=== PATIENT | male | born 1955 | race American Indian/Alaskan Native ===

== ENCOUNTER 2016-12-02 17:41 | Emergency (ER) | payer OTHER ==
[2016-12-02 17:52] VITALS: BP 116/81
[2016-12-02 19:00] LABS: Hematocrit 43.8 % (35.5-45.6); Hemoglobin 14.2 gm/dl (11.8-15.2); Mean Corpuscular HGB Conc 32 % (32-34); Mean Corpuscular Hemoglobin 28 pg (28-32); Mean Corpuscular Volume 87 fl (84-94); Platelet Count 263 K/mm3 (140-440); Red Blood Count 5.07 M/mm3 (3.65-5.03); Red Cell Distribution Width 14.6 % (13.2-15.2)
[2016-12-02 19:17] LABS: INR 1.25 (0.87-1.13)
[2016-12-02 19:20] LABS: Anion Gap 19 mmol/L; BUN/Creatinine Ratio 15.55; Blood Urea Nitrogen 14 mg/dL (9-20); Calcium 8.8 mg/dL (8.4-10.2); Carbon Dioxide 23 mmol/L (22-30); Chloride 97.6 mmol/L (98-107); Glucose 156 mg/dL (75-100); Potassium 4.2 mmol/L (3.6-5.0); Sodium 135 mmol/L (137-145)
--- NOTE | 2016-12-03 07:30 | ED Elopement Review ---
ED Pt Elopement review - Results review Lab results: Laboratory Tests 12/02/16 12/02/16 12/02/16 18:36 18:36 18:36 WBC 11.0 RBC 5.07 H Hgb 14.2 Hct 43.8 MCV 87 MCH 28 MCHC 32 RDW 14.6 Plt Count 263 Lymph % (Auto) 24.2 [place] % (Auto) 14.9 H Eos % (Auto) 7.0 H Baso % (Auto) 1.0 Lymph # 2.7 [place] # 1.6 H Eos # 0.8 H Baso # 0.1 Seg Neutrophils % 52.9 Seg Neutrophils # 5.8 PT 15.6 H INR 1.25 H APTT 55.0 H Sodium 135 L Potassium 4.2 Chloride 97.6 L Carbon Dioxide 23 Anion Gap 19 BUN 14 Creatinine 0.9 Estimated GFR > 60 BUN/Creatinine Ratio 15.55 Glucose 156 H Calcium 8.8 Troponin T < 0.010 NT-Pro-B Natriuret Pep 170.3 - Call Back decision Pt Call Back Decision: No action required
--- NOTE | 2016-12-03 10:33 | XRay Report ---
PA and lateral chest: There is a 2.7 cm rounded density projecting over the left midlung seen only on the frontal view which is not present on prior exams. The chest otherwise appears generally clear. There is an ICD present which is not new. The heart is normal in size and there is no vascular congestion. Impression: Suspicion of left pulmonary opacity. Recommendation: CT chest.
== END 2016-12-02 22:40 | disposition left against medical advice (07) ==
LOC: ED 17:41
DX: R06.02 Shortness of breath (principal); R05 Cough; Z53.21 Procedure and treatment not carried out due to patient leaving prior to being seen by health care provider
CPT/HCPCS: 36415; 71020; 80048; 83880; 84484; 85025; 85610; 85730; 93005; 93010

== ENCOUNTER 2017-06-01 07:41 | Inpatient (IN) | payer OTHER ==
[2017-06-01 08:28] LABS: Anion Gap 18 mmol/L; BUN/Creatinine Ratio 12.72; Blood Urea Nitrogen 14 mg/dL (9-20); Calcium 8.7 mg/dL (8.4-10.2); Carbon Dioxide 23 mmol/L (22-30); Chloride 102.8 mmol/L (98-107); Glucose 191 mg/dL (75-100); Potassium 4.6 mmol/L (3.6-5.0); Sodium 139 mmol/L (137-145)
[2017-06-01 08:36] LABS: Basophils % (Auto) 1.1 % (0.0-1.8); Hematocrit 40.6 % (35.5-45.6); Hemoglobin 13.8 gm/dl (11.8-15.2); Mean Corpuscular HGB Conc 34 % (32-34); Mean Corpuscular Hemoglobin 30 pg (28-32); Mean Corpuscular Volume 89 fl (84-94); Platelet Count 244 K/mm3 (140-440); Red Blood Count 4.55 M/mm3 (3.65-5.03); Red Cell Distribution Width 14.1 % (13.2-15.2)
[2017-06-01] MEDS ORDERED: LASIX IV ONE (08:52)
--- NOTE | 2017-06-01 08:56 | Emergency Department Report ---
ED Shortness of Breath HPI - General Chief Complaint: Dyspnea/Respdistress Stated Complaint: SOB Time Seen by Provider: 06/01/17 08:38 Source: patient Mode of arrival: Ambulatory Limitations: No Limitations - History of Present Illness Initial Comments: Mr. Lunsford is a 61 years old -[place] male coming with shortness of breath since been going on for 2-3 days. He has history of congestive heart failure was an ejection fraction 10-15%. He also complained of left-sided chest pain on and off at the defibrillator side. Denied any fever cough nausea or vomiting. MD Complaint: shortness of breath, chest pain -: days(s) (2) Known History Of: congestive heart failure Associated Symptoms: orhopnia - Related Data Previous Rx's Medication Instructions Recorded Last Taken Type Furosemide [Lasix TAB] 20 mg PO QDAY #30 tablet 06/12/16 06/26/16 Rx ISOSORBIDE MONOnitrate [Imdur ER] 30 mg PO QDAY #30 tablet 06/12/16 06/26/16 Rx Lisinopril [Zestril TAB] 2.5 mg PO QDAY #30 tab 06/12/16 06/26/16 Rx Dabigatran [Pradaxa] 150 mg PO BID #30 capsule 06/28/16 Unknown Rx Metoprolol [Lopressor TAB] 50 mg PO BID #60 tablet 06/28/16 Unknown Rx Insulin NPH/Regular [NovoLIN 70/30] 15 unit SUB-Q BIDDIAB 30 Days 08/15/16 Unknown Rx Amiodarone [Cordarone 200 MG TAB] 200 mg PO BID #60 tablet 01/09/17 Unknown Rx AtorvaSTATin [Lipitor] 20 mg PO QHS #30 tablet 01/09/17 Unknown Rx AtorvaSTATin [Lipitor] 20 mg PO QHS #30 tablet 01/09/17 Unknown Rx Dabigatran [Pradaxa] 150 mg PO BID #60 capsule 01/09/17 Unknown Rx Furosemide [Lasix TAB] 20 mg PO QDAY #30 tablet 01/09/17 Unknown Rx ISOSORBIDE MONOnitrate [Imdur ER] 30 mg PO QDAY #30 tablet 01/09/17 Unknown Rx Lisinopril [Zestril TAB] 2.5 mg PO QDAY #30 tablet 01/09/17 Unknown Rx Metoprolol Xl [Metoprolol 50 mg PO QDAY #30 tablet 01/09/17 Unknown Rx SUCCINATE ER TAB] Allergies Allergy/AdvReac Type Severity Reaction Status Date / Time iodine Allergy Hives Verified 12/02/16 17:53 shrimp Allergy Swelling Verified 12/02/16 17:53 ED Review of Systems ROS: Stated complaint: SOB Other details as noted in HPI Comment: All other systems reviewed and negative Constitutional: denies: chills, fever Respiratory: orthopnea, shortness of breath, SOB with exertion, SOB at rest. denies: cough, stridor, wheezing Cardiovascular: chest pain, dyspnea on exertion, orthopnea. denies: palpitations, edema Gastrointestinal: denies: abdominal pain, nausea, vomiting Musculoskeletal: denies: back pain Neurological: denies: headache, weakness ED Past Medical Hx - Past Medical History Previous Medical History?: Yes Hx Hypertension: Yes Hx Heart Attack/AMI: Yes Hx Congestive Heart Failure: Yes Hx Diabetes: Yes Hx Asthma: No Hx COPD: Yes Hx HIV: No - Surgical History Past Surgical History?: Yes Hx Pacemaker: Yes () Additional Surgical History: cardiac catherization 03/12/16 - Social History Smoking Status: Former Smoker Substance Use Type: Alcohol, Cocaine, Prescribed - Medications Home Medications: Home Medications Medication Instructions Recorded Confirmed Last Taken Type Furosemide [Lasix TAB] 20 mg PO QDAY #30 tablet 06/12/16 01/07/17 06/26/16 Rx ISOSORBIDE MONOnitrate [Imdur ER] 30 mg PO QDAY #30 tablet 06/12/16 01/07/17 Rx Lisinopril [Zestril TAB] 2.5 mg PO QDAY #30 tab 06/12/16 01/07/17 06/26/16 Rx Dabigatran [Pradaxa] 150 mg PO BID #30 capsule 06/28/16 01/07/17 Unknown Rx Metoprolol [Lopressor TAB] 50 mg PO BID #60 tablet 06/28/16 01/07/17 Unknown Rx Insulin NPH/Regular [NovoLIN 70/30] 15 unit SUB-Q BIDDIAB 30 Days 08/15/1601/07 Unknown Rx Amiodarone [Cordarone 200 MG TAB] 200 mg PO BID #60 tablet 01/09/17 Unknown Rx AtorvaSTATin [Lipitor] 20 mg PO QHS #30 tablet 01/09/17 Unknown Rx AtorvaSTATin [Lipitor] 20 mg PO QHS #30 tablet 01/09/17 Unknown Rx Dabigatran [Pradaxa] 150 mg PO BID #60 capsule 01/09/17 Unknown Rx Furosemide [Lasix TAB] 20 mg PO QDAY #30 tablet 01/09/17 Unknown Rx ISOSORBIDE MONOnitrate [Imdur ER] 30 mg PO QDAY #30 tablet 01/09/17 Unknown Rx Lisinopril [Zestril TAB] 2.5 mg PO QDAY #30 tablet 01/09/17 Unknown Rx Metoprolol Xl [Metoprolol 50 mg PO QDAY #30 tablet 01/09/17 Unknown Rx SUCCINATE ER TAB] ED Physical Exam - General Limitations: No Limitations General appearance: alert, in no apparent distress - Neck Neck exam: Present: normal inspection, full ROM. Absent: tenderness, meningismus, lymphadenopathy, thyromegaly - Respiratory Respiratory exam: Present: rales, decreased breath sounds. Absent: wheezes, rhonchi, stridor - Cardiovascular Cardiovascular Exam: Present: regular rate, normal rhythm, normal heart sounds - GI/Abdominal GI/Abdominal exam: Present: soft. Absent: distended, tenderness, guarding, rebound, rigid, normal bowel sounds, hyperactive bowel sounds, hypoactive bowel sounds, organomegaly, mass, bruit, pulsatile mass - Extremities Exam Extremities exam: Absent: pedal edema - Back Exam Back exam: Present: normal inspection. Absent: CVA tenderness (R), CVA tenderness (L) - Neurological Exam Neurological exam: Present: alert, oriented X3, CN II-XII intact - Skin Skin exam: Present: warm, normal color ED Course Vital Signs 06/01/17 06/01/17 06/01/17 07:44 08:03 08:17 Temperature 98 F Pulse Rate 65 Respiratory 18 18 Rate Blood Pressure 142/89 Blood Pressure [Left] O2 Sat by Pulse 95 97 Oximetry 06/01/17 06/01/17 06/01/17 08:30 09:00 09:23 Temperature Pulse Rate 63 61 65 Respiratory 19 16 20 Rate Blood Pressure 123/84 129/77 Blood Pressure 127/75 [Left] O2 Sat by Pulse 92 96 95 Oximetry 06/01/17 06/01/17 06/01/17 09:30 10:00 10:30 Temperature Pulse Rate 65 59 L 60 Respiratory 13 17 14 Rate Blood Pressure 129/77 125/84 125/84 Blood Pressure [Left] O2 Sat by Pulse 98 97 97 Oximetry 06/01/17 06/01/17 06/01/17 11:00 11:30 12:00 Temperature Pulse Rate 59 L 58 L 57 L Respiratory 14 12 15 Rate Blood Pressure 109/61 109/61 111/68 Blood Pressure [Left] O2 Sat by Pulse 95 97 95 Oximetry 06/01/17 06/01/17 06/01/17 12:30 12:52 13:00 Temperature Pulse Rate 62 65 67 Respiratory 14 18 12 Rate Blood Pressure 111/68 111/82 Blood Pressure 111/68 [Left] O2 Sat by Pulse 98 97 95 Oximetry 06/01/17 13:30 Temperature Pulse Rate 59 L Respiratory 13 Rate Blood Pressure 111/82 Blood Pressure [Left] O2 Sat by Pulse 97 Oximetry - Reevaluation(s) Reevaluation #1: 06/01/17 PATIENT STATED THAT HE FEEL BETTER. DISCUSS WITH DR SEPULVEDA FOR ADMISSION. ED Medical Decision Making - Lab Data Result diagrams: 06/01/17 07:58 06/01/17 07:55 Critical care attestation.: If time is entered above; I have spent that time in minutes in the direct care of this critically ill patient, excluding procedure time. ED Disposition Clinical Impression: CHF exacerbation Chest pain Qualifiers: Chest pain type: unspecified Qualified Code(s): R07.9 - Chest pain, unspecified Disposition: DC-09 OP ADMIT IP TO THIS HOSP Is pt being admited?: Yes Condition: Stable
--- NOTE | 2017-06-01 09:08 | XRay Report ---
FINAL REPORT EXAM: XR CHEST ROUTINE 2V HISTORY: sob with hx of pacemaker TECHNIQUE: Chest, two views PRIORS: 03/09/2016 FINDINGS: Pacemaker projects on the left.. The heart size is normal. Mediastinal contours are normal. Pulmonary vasculature is not congested. The lungs are clear. There are no pleural effusion seen. There is no evidence of pneumothorax. IMPRESSION: There is no acute abnormality identified.
--- NOTE | 2017-06-01 10:18 | Consultation ---
History of Present Illness Consult date: 06/01/17 Requesting physician: RAGHU WHALEN Consult reason: congestive heart failure History of present illness: This is a 61-year-old -[place] male with known history of nonischemic cardiomyopathy with AICD proximal atrial fibrillation hypertension hyperlipidemia who was last seen by Dr. Elizalde in March was exercising and was in [place] heart classification 1. Patient has stopped exercises. Having dietary indiscretion with more fluid and salt intake. Last few days of increasing shortness of breath last night and was unable to sleep at night had 4 pillow orthopnea and PND patient came to emergency room for further evaluation and was given 40 mg of Lasix shortness breath is improved. Patient denies any AICD shock. Patient denies any chest pain. Patient denies any nausea or vomiting fever or chills patient states compliance with medication Past History Past Medical History: atrial fib (proximal), heart failure (systolic heart failure 10-15%), hypertension, hyperlipidemia Past Surgical History: Other (AICD) Social history: smoking (occasional smoker). denies: alcohol abuse, prescription drug abuse Medications and Allergies Allergies Allergy/AdvReac Type Severity Reaction Status Date / Time iodine Allergy Hives Verified 12/02/16 17:53 shrimp Allergy Swelling Verified 12/02/16 17:53 Home Medications Medication Instructions Recorded Confirmed Last Taken Type Furosemide [Lasix TAB] 20 mg PO QDAY #30 tablet 06/12/16 01/07/17 06/26/16 Rx ISOSORBIDE MONOnitrate [Imdur ER] 30 mg PO QDAY #30 tablet 06/12/16 01/07/17 Rx Lisinopril [Zestril TAB] 2.5 mg PO QDAY #30 tab 06/12/16 01/07/17 06/26/16 Rx Dabigatran [Pradaxa] 150 mg PO BID #30 capsule 06/28/16 01/07/17 Unknown Rx Metoprolol [Lopressor TAB] 50 mg PO BID #60 tablet 06/28/16 01/07/17 Unknown Rx Insulin NPH/Regular [NovoLIN 70/30] 15 unit SUB-Q BIDDIAB 30 Days 08/15/1601/07 Unknown Rx Amiodarone [Cordarone 200 MG TAB] 200 mg PO BID #60 tablet 01/09/17 Unknown Rx AtorvaSTATin [Lipitor] 20 mg PO QHS #30 tablet 01/09/17 Unknown Rx AtorvaSTATin [Lipitor] 20 mg PO QHS #30 tablet 01/09/17 Unknown Rx Dabigatran [Pradaxa] 150 mg PO BID #60 capsule 01/09/17 Unknown Rx Furosemide [Lasix TAB] 20 mg PO QDAY #30 tablet 01/09/17 Unknown Rx ISOSORBIDE MONOnitrate [Imdur ER] 30 mg PO QDAY #30 tablet 01/09/17 Unknown Rx Lisinopril [Zestril TAB] 2.5 mg PO QDAY #30 tablet 01/09/17 Unknown Rx Metoprolol Xl [Metoprolol 50 mg PO QDAY #30 tablet 01/09/17 Unknown Rx SUCCINATE ER TAB] Review of Systems All systems: negative (as per the HPI) Physical Examination Vital Signs Temp Pulse Resp BP Pulse Ox 98 F 65 18 142/89 95 06/01/17 07:44 06/01/17 07:44 06/01/17 07:44 06/01/17 07:44 06/01/17 07:44 General appearance: no acute distress, well-nourished HEENT: Positive: PERRL, Mucus Membranes Moist Neck: Positive: neck supple, trachea midline Cardiac: Positive: Reg Rate and Rhythm, S1/S2. Negative: Audible Murmur Lungs: Positive: Decreased Breath Sounds Neuro: Positive: Grossly Intact Abdomen: Positive: Soft, Active Bowel Sounds. Negative: Tender, Distended Male genitourinary: Positive: normal Skin: Positive: Clear Incision: Cardiac Cath Site Musculoskeletal: No Pain, Normal Range of Motion Extremities: Present: normal. Absent: edema Results 06/01/17 07:58 06/01/17 07:55 CBC 06/01/17 Range/Units 07:58 WBC 9.0 (4.5-11.0) K/mm3 RBC 4.55 (3.65-5.03) M/mm3 Hgb 13.8 (11.8-15.2) gm/dl Hct 40.6 (35.5-45.6) % Plt Count 244 (140-440) K/mm3 Lymph # 2.4 (1.2-5.4) K/mm3 [place] # 1.4 H (0.0-0.8) K/mm3 Eos # 0.4 (0.0-0.4) K/mm3 Baso # 0.1 (0.0-0.1) K/mm3 Comprehensive Metabolic Panel 06/01/17 Range/Units 07:55 Sodium 139 (137-145) mmol/L Potassium 4.6 (3.6-5.0) mmol/L Chloride 102.8 (98-107) mmol/L Carbon Dioxide 23 (22-30) mmol/L BUN 14 (9-20) mg/dL Creatinine 1.1 (0.8-1.5) mg/dL Glucose 191 H (75-100) mg/dL Calcium 8.7 (8.4-10.2) mg/dL - Imaging and Cardiology Echo: report reviewed (05/2016 EF 10-15%) Cardiac cath: report reviewed (08/2016 normal coronary severe LV dysfunction) EKG interpretations - Telemetry EKG Rhythm: Sinus Rhythm (normal sinus rhythm left bundle branch block) Assessment and Plan Acute respiratory failure Acute on chronic systolic heart failure Nonischemic cardiomyopathy Abnormal EKG left bundle branch block Proximal A fibrillation Hypertension Hyperlipidemia Smoker Recommend continuing IV diarrhetic's continue home medications consultation about her dietary discretion and smoking sensation patient has dual-chamber AICD unable place third lead for BIV ventricle as per the patient.
--- NOTE | 2017-06-01 11:52 | History and Physical Report ---
History of Present Illness Chief complaint: I got fluid on my lungs, I can feel it History of present illness: 61 YO Male with CHF Systolic(EF 10%), Paroxysmal Atrial Fib, HTN, HLD, NH, DM, COPD presents to ED for evaluation. Pt states that he has experienced shortness of breath for the past 3 days with worsening symptoms over the past 1 day. Pt acknowledges 4 pillow Orthopnea/PND, dietary noncompliance. Pt denies ICD discharge, fever, chills, CP, Palpitations, NVD, Syncope, prolonged immobility/ travel, individual/family history of DVT/PE, Trauma, unilateral leg swelling, calf pain, hemoptysis, syncope, BRBPR, unintentional weight loss, night sweats, bone pain, skin rashes, or recent ill contacts, Past History Past Medical History: atrial fib (proximal), heart failure (systolic heart failure 10-15%), hypertension, hyperlipidemia Past Surgical History: Other (AICD) Social history: single, smoking (occasional smoker). denies: alcohol abuse, prescription drug abuse Family history: hypertension Medications and Allergies Allergies Allergy/AdvReac Type Severity Reaction Status Date / Time iodine Allergy Hives Verified 12/02/16 17:53 shrimp Allergy Swelling Verified 12/02/16 17:53 Home Medications Medication Instructions Recorded Confirmed Last Taken Type Furosemide [Lasix TAB] 20 mg PO QDAY #30 tablet 06/12/16 01/07/17 06/26/16 Rx ISOSORBIDE MONOnitrate [Imdur ER] 30 mg PO QDAY #30 tablet 06/12/16 01/07/17 Rx Lisinopril [Zestril TAB] 2.5 mg PO QDAY #30 tab 06/12/16 01/07/17 06/26/16 Rx Dabigatran [Pradaxa] 150 mg PO BID #30 capsule 06/28/16 01/07/17 Unknown Rx Metoprolol [Lopressor TAB] 50 mg PO BID #60 tablet 06/28/16 01/07/17 Unknown Rx Insulin NPH/Regular [NovoLIN 70/30] 15 unit SUB-Q BIDDIAB 30 Days 08/15/1601/07 Unknown Rx Amiodarone [Cordarone 200 MG TAB] 200 mg PO BID #60 tablet 01/09/17 Unknown Rx AtorvaSTATin [Lipitor] 20 mg PO QHS #30 tablet 01/09/17 Unknown Rx AtorvaSTATin [Lipitor] 20 mg PO QHS #30 tablet 01/09/17 Unknown Rx Dabigatran [Pradaxa] 150 mg PO BID #60 capsule 01/09/17 Unknown Rx Furosemide [Lasix TAB] 20 mg PO QDAY #30 tablet 01/09/17 Unknown Rx ISOSORBIDE MONOnitrate [Imdur ER] 30 mg PO QDAY #30 tablet 01/09/17 Unknown Rx Lisinopril [Zestril TAB] 2.5 mg PO QDAY #30 tablet 01/09/17 Unknown Rx Metoprolol Xl [Metoprolol 50 mg PO QDAY #30 tablet 01/09/17 Unknown Rx SUCCINATE ER TAB] Review of Systems All systems: negative Constitutional: weight gain, no fever, no chills Ears, nose, mouth and throat: no ear pain Cardiovascular: orthopnea, edema, dyspnea on exertion, paroxysmal nocturnal dyspnea Respiratory: no cough with sputum Gastrointestinal: no abdominal pain Genitourinary Male: no hematuria Musculoskeletal: no neck pain Integumentary: no rash Neurological: no head injury, no weakness Psychiatric: no anxiety, no hypersomnia Endocrine: no cold intolerance, no heat intolerance Hematologic/Lymphatic: no easy bruising Allergic/Immunologic: no urticaria Exam - Constitutional Vitals: Temp Pulse Resp BP Pulse Ox 98 F 65 20 127/75 95 06/01/17 07:44 06/01/17 09:23 06/01/17 09:23 06/01/17 09:23 06/01/17 09:23 General appearance: Present: mild distress - EENT Eyes: Present: PERRL ENT: hearing intact, clear oral mucosa - Neck Neck: Present: supple, normal ROM - Respiratory Respiratory effort: normal Respiratory: bilateral: CTA - Cardiovascular Heart Sounds: Present: S1 & S2. Absent: rub, click - Extremities Extremities: pulses symmetrical, No edema Extremity abnormal: edema Peripheral Pulses: within normal limits - Abdominal General gastrointestinal: Present: soft, non-tender, non-distended, normal bowel sounds Male genitourinary: Present: normal - Integumentary Integumentary: Present: clear, warm, dry - Musculoskeletal Musculoskeletal: gait normal, strength equal bilaterally - Psychiatric Psychiatric: appropriate mood/affect, intact judgment & insight - Neurologic Neurologic: CNII-XII intact, moves all extremities Results - Labs CBC & Chem 7: 06/01/17 07:58 06/01/17 07:55 Labs: Abnormal lab results 06/01/17 06/01/17 Range/Units 07:55 07:58 [place] % (Auto) 15.5 H (0.0-7.3) % [place] # 1.4 H (0.0-0.8) K/mm3 Glucose 191 H (75-100) mg/dL Assessment and Plan - Patient Problems (1) Acute respiratory failure Current Visit: Yes Status: Acute Qualifiers: Respiratory failure complication: R Plan to address problem: Supplemental oxygen, nebs, aspiration precautions, NIPPV as clinically indicated , diuretic therapy (2) Atrial fibrillation Current Visit: Yes Status: Acute Qualifiers: Atrial fibrillation type: paroxysmal Qualified Code(s): I48.0 - Paroxysmal atrial fibrillation Plan to address problem: rate currently controlled, NSR at time of exam, telemetry monitoring (3) HLD (hyperlipidemia) Current Visit: Yes Status: Acute Qualifiers: Hyperlipidemia type: H Plan to address problem: sttin theapy, lipid panel (4) Acute on chronic systolic (congestive) heart failure Current Visit: No Status: Acute Plan to address problem: Cardiology consulted, afterload reduction, fluid restriction, diuresis, daily weight, resume home medication (5) Hypertension Current Visit: No Status: Chronic Qualifiers: Hypertension type: essential hypertension Qualified Code(s): I10 - Essential (primary) hypertension Plan to address problem: monitor bp q shift, resume home medication (6) DVT prophylaxis Current Visit: No Status: Acute
[2017-06-01] MEDS ORDERED: TYLENOL PO PRN (12:00)
[2017-06-01] MEDS ORDERED: PROVENTIL IH PRN (12:00)
[2017-06-01] MEDS ORDERED: MILK OF MAGNESIA PO PRN (17:35)
[2017-06-01] MEDS: COLACE PO SCH (22:06)
[2017-06-02] MEDS: NOVOLOG SUB-Q SCH ×3 (01:03→13:03)
--- NOTE | 2017-06-02 05:35 | Admit Criteria Form ---
Admission Criteria Documentation: HEART FAILURE: COMMON COMPLICATIONS Clinical Indications for Inpatient Care ([place]/check or initial the applicable condition/criteria): Ongoing inpatient care may be indicated for heart failure with 1 or more of the following (1)(2)(3)(4)(5)(6)(7)(8): [ ]I. New-onset heart failure [ ]II. Acute cardiac ischemia causing or associated with failure [ ]III. Ongoing need for care for primary condition requiring frequent therapy adjustments because of changes in cardiac function (eg, drug dosage changes for drugs that are renally metabolized) [X]IV. Complications of heart failure, including 1 or more of the following: [ ]a) Hemodynamic instability [ ]b) Pericardial effusion [ ]c) Symptomatic pleural effusion(16) [ ]d) Hypoxemia [ ]e) Tachypnea [X]f) Dyspnea [ ]g) Syncope [ ]h) Altered mental status [ ]i) Acute renal insufficiency that is severe (reduction of more than 50% in estimated glomerular filtration rate from baseline) or progressive (reduction of more than 25% in estimated glomerular filtration rate from baseline, with creatinine continuing to rise) [ ]j) Debilitating anasarca (eg tissue breakdown with infection, inability to void due to edema)(E) (17) [ ]k) Clinically significant metabolic abnormalities due to heart failure (e.g., new-onset metabolic acidosis) Extended stay may be needed until ALL of the following are present(1)(3)(18)(41) (55): [ ]a) Hemodynamic stability [ ]b) Stable and effective diuretic regimen established (or patient on stable dialysis regimen if in chronic renal failure) [ ]c) Volume status acceptable on oral medication [ ]d) Breathing comfortably at rest [ ]e) Saturation of arterial oxygen greater than 90% or at acceptable baseline [ ]f) Pulmonary edema absent or improved [ ]g) Peripheral or sacral edema absent or improved [ ]h) Renal function stable and manageable at a lower level of care [ ]i) Complications (e.g., pleural effusion) resolved or manageable at a lower level of care [ ]j) Patient or caregiver has received written discharge instructions or educational material addressing activity level, diet, discharge medications, follow-up appointment, weight monitoring, and what to do if symptoms worsen. (56)(57)(58) The original [facility] [employer] content created by Carol Friedman has been revised. The portions of the content which have been revised are identified through the use of italic text or in bold, and Carol Friedman has neither reviewed nor approved the modified material.All other unmodified content is copyright [facility]. Please see references footnoted in the original [facility] edition 2017 Admission Criteria Met: Yes
[2017-06-02 09:22] VITALS: BP 138/91
[2017-06-02] MEDS: COLACE PO SCH (09:56)
--- NOTE | 2017-06-02 11:33 | Progress Note ---
Assessment and Plan Currently stable cardiac status. Pt may discharge home from cardiology standpoint. Will see PRN. On discharge, recommend continuation of PO lasix, 40mg daily. Follow up in our [place] office with Dr. Elizalde on 06/11/2017 @ 9:15AM. The patient has been seen in conjunction with Dr. Dubose who agrees with the assessment and plan of care. - Patient Problems (1) Acute on chronic systolic heart failure Current Visit: Yes Status: Chronic (2) Paroxysmal atrial flutter Current Visit: Yes Status: Chronic (3) Nonischemic cardiomyopathy Current Visit: Yes Status: Chronic (4) Automatic implantable cardioverter-defibrillator in situ Current Visit: Yes Status: Chronic (5) Hypertension Current Visit: Yes Status: Chronic Qualifiers: Hypertension type: essential hypertension Qualified Code(s): I10 - Essential (primary) hypertension (6) HLD (hyperlipidemia) Current Visit: Yes Status: Chronic Qualifiers: Hyperlipidemia type: H (7) Tobacco use Current Visit: Yes Status: Chronic Subjective Date of service: 06/02/17 Principal diagnosis: HF Interval history: Pt resting comfortably in bed, denies any cardiac complaints. States he is ready to go home. VSS. Objective Last Vital Signs Temp 97.5 F L 06/02/17 09:21 Pulse 61 06/02/17 09:21 Resp 18 06/02/17 09:21 BP 138/91 06/02/17 09:21 Pulse Ox 97 06/02/17 09:21 - Physical Examination General: No Apparent Distress HEENT: Positive: PERRL, Mucus Membranes Moist Neck: Positive: neck supple, trachea midline Cardiac: Positive: Reg Rate and Rhythm, S1/S2 Lungs: Positive: clear to auscultation Neuro: Positive: Grossly Intact Abdomen: Positive: Soft, Active Bowel Sounds. Negative: Tender, Distended Skin: Positive: Clear Incision: Cardiac Cath Site Musculoskeletal: No Pain, Normal Range of Motion Extremities: Present: normal. Absent: edema - Imaging and Cardiology Echo: report reviewed (05/2016 EF 10-15%) Cardiac cath: report reviewed (08/2016 normal coronary severe LV dysfunction)
[2017-06-02] MEDS ORDERED: LASIX PO SCH (12:30)
--- NOTE | 2017-06-02 13:43 | Discharge Summary ---
Providers - Providers Date of Admission: 06/01/17 11:56 Date of discharge: 06/02/17 Attending physician: CONNIE RUBIO Primary care physician: [employer] Hospitalization Condition: Stable Hospital course: Patient is a 61-year-old man history of paroxysmal atrial ablation, hypertension , COPD, diabetes mellitus2, adilene on cpap and cardiomyopathy with EF of 10-15% who presented with shortness of breath. After receiving more Lasix his symptoms resolved and he wants to go home. Chest x-ray read as no acute findings. Pulse ox was 95% on room air with pro-BNP of only 414 -Chronic heart failure, possibly acute on chronic systolic heart failure treated with more diuretics which quickly resolved -No acute respiratory failure Per cardiology Currently stable cardiac status. Pt may discharge home from cardiology standpoint. Will see PRN. On discharge, recommend continuation of PO lasix, 40mg daily. Follow up in our [place] office with Dr. Elizalde on 06/11/2017 @ 9:15AM. Disposition: DC-01 TO HOME OR SELFCARE Time spent for discharge: 33 minutes Core Measure Documentation - Palliative Care Palliative Care/ Comfort Measures: Not Applicable - Core Measures Any of the following diagnoses?: heart failure - VTE Discharge Requirements Deep Vein Thrombosis/Pulmonary Embolism Present on Admission: No Has pt received <5 days of overlap therapy or INR<2.0: No Anticoagulant overlap therapy prescribed at discharge: No Contraindication No Overlap Therapy order at DC: Not Indicated - Heart Failure Discharge Requirements PARKER/ARB for LVSD if EF <40%: Yes Beta luly at discharge: Yes Exam - Physical Exam Narrative exam: GEN: WDWN, NAD, AWAKE, ALERT, ORIENTATED x 3 HEENT: NCAT, PERRL, EOMI, OP CLEAR NECK: SUPPLE, NO THYROMEGALY, NO JVD, NO LAD CVS: RRR, NORMAL S1S2 LUNGS/CHEST: CTA B, NORMAL CHEST EXPANSION B, GOOD AIR ENTRY B ABD: SOFT, NTND, GBS, NO REBOUND OR GUARDING EXT/SKIN: NO SIGNIFICANT EDEMA OR RASH MSK: FROM X 4 EXTREMITIES NEURO: CN 2-12 GROSSLY INTACT, NO FOCAL DEFICITS PSY: CALM - Constitutional Vitals: Temp Pulse Resp BP Pulse Ox 97.5 F L 61 18 138/91 97 06/02/17 09:21 06/02/17 09:21 06/02/17 09:21 06/02/17 09:21 06/02/17 09:21 Plan Activity: other (no strenous activities unless cleared by Cardiology) Diet: low salt, diabetic Special Instructions: record blood sugar diary (three times a day, before meals) Follow up with: PRIMARY CARE, [Primary Care Provider] - 3-5 Days
[2017-06-02] MEDS ORDERED: CORDARONE PO SCH (22:00)
[2017-06-02] MEDS ORDERED: PRADAXA PO SCH (22:00)
[2017-06-03] MEDS ORDERED: IMDUR PO SCH (10:00)
[2017-06-03] MEDS ORDERED: ZESTRIL PO SCH (10:00)
[2017-06-03] MEDS ORDERED: TOPROL XL PO SCH (10:00)
== END 2017-06-02 14:22 | disposition home or self-care (01) | DRG 292 ==
LOC: ED 07:41 → 4A 11:56
PROVIDERS: ADMIT Internal Medicine; ATTEND Internal Medicine
DX: I11.0 Hypertensive heart disease with heart failure (principal); I48.92 Unspecified atrial flutter; I50.23 Acute on chronic systolic (congestive) heart failure; E87.5 Hyperkalemia; E11.9 Type 2 diabetes mellitus without complications; J44.9 Chronic obstructive pulmonary disease, unspecified; F17.200 Nicotine dependence, unspecified, uncomplicated; G47.33 Obstructive sleep apnea (adult) (pediatric); I42.9 Cardiomyopathy, unspecified; I48.0 Paroxysmal atrial fibrillation; E78.5 Hyperlipidemia, unspecified; I44.7 Left bundle-branch block, unspecified; Z91.041 Radiographic dye allergy status; Z91.013 Allergy to seafood; Z82.49 Family history of ischemic heart disease and other diseases of the circulatory system; Z95.810 Presence of automatic (implantable) cardiac defibrillator; Z71.6 Tobacco abuse counseling; I42.8 Other cardiomyopathies
CPT/HCPCS: 36415; 71020; 80048; 82962; 83880; 84484; 85025; 93005; 93010; 93306; 94640; 96374; J1815; J1940

== ENCOUNTER 2017-07-06 01:10 | Emergency (ER) | payer OTHER | END 2017-07-06 01:45 | disposition left against medical advice (07) | LOC: ED 01:10 | DX: Z53.21 Procedure and treatment not carried out due to patient leaving prior to being seen by health care provider (principal) ==